=== PATIENT | female | born 1950 | race American Indian/Alaskan Native ===

== ENCOUNTER 2017-08-03 10:03 | Emergency (ER) | payer MEDICARE, OTHER ==
--- NOTE | 2017-08-03 10:59 | XRay Report ---
ROUTINE CHEST, TWO VIEWS: SOB. PA and lateral views demonstrate the heart and mediastinal contour to be of normal size and shape. The lungs are clear and fully expanded and the soft tissues and bony structures are normal. IMPRESSION: Normal study.
[2017-08-03 12:24] LABS: Basophils # (Auto) 0.1 K/mm3 (0.0-0.1); Basophils % (Auto) 1.1 % (0.0-1.8); Eosinophils # (Auto) 0.5 K/mm3 (0.0-0.4); Eosinophils % (Auto) 5.6 % (0.0-4.3); Hematocrit 38.3 % (30.3-42.9); Hemoglobin 12.7 gm/dl (10.1-14.3); Lymphocytes # (Auto) 2.3 K/mm3 (1.2-5.4); Lymphocytes % (Auto) 24.2 % (13.4-35.0); Mean Corpuscular HGB Conc 33 % (30-34); Mean Corpuscular Volume 76 fl (79-97); Monocytes # (Auto) 0.6 K/mm3 (0.0-0.8); Monocytes % (Auto) 6.6 % (0.0-7.3); Platelet Count 444 K/mm3 (140-440); Red Blood Count 5.02 M/mm3 (3.65-5.03); Red Cell Distribution Width 17.2 % (13.2-15.2)
[2017-08-03 12:27] LABS: Mean Corpuscular Hemoglobin 25 pg (28-32)
[2017-08-03 12:40] LABS: BUN/Creatinine Ratio 25; Blood Urea Nitrogen 15 mg/dL (7-17); Calcium 10.1 mg/dL (8.4-10.2); Hemolysis Index 16
--- NOTE | 2017-08-03 18:19 | Emergency Department Report ---
ED Shortness of Breath HPI - General Chief Complaint: Dyspnea/Respdistress Stated Complaint: DIFFICULTY BREATHING Time Seen by Provider: 08/03/17 15:40 Source: patient Mode of arrival: Ambulatory Limitations: Other - History of Present Illness Initial Comments: This is a 66-year-old female who has been hospitalized in the past for asthma exacerbations. She complains today of worsening shortness of breath. She states she has had these symptoms over the past several days but it acutely worsened yesterday. She has tried breathing treatments at home with no success. She also reports coughing and has nausea and has sharp chest pain to palpation. She states she feels short of breath with exertion. She admits to increased wheezing. Denies fever. She was admitted in December 2016 for similar symptoms. MD Complaint: shortness of breath -: Gradual Radiation: back Severity: moderate Quality: aching Consistency: constant Improves With: nothing Worsens With: exertion, movement Known History Of: asthma Associated Symptoms: chest pain (sharp, middle of chest) Treatments Prior to Arrival: oxygen, bronchodilator - Related Data Home Oxygen Therapy: No Home Medications Medication Instructions Recorded Confirmed Last Taken Albuterol Sulfate [Ventolin HFA] 2 puff IH Q4H PRN 01/06/16 01/01/17 1 Day Ago ~12/31/16 Fluticasone [Flonase] 1 spray NS QDAY 01/06/16 01/01/17 1 Day Ago ~12/31/16 Pregabalin [Lyrica] 75 mg PO QDAY 01/06/16 01/01/17 1 Day Ago ~12/31/16 Previous Rx's Medication Instructions Recorded Last Taken Type Calcium Citrate/Vit D 315-250 1 each PO BID #60 tablet 06/21/16 1 Day Ago Rx [Citracal D 315Mg-250 Units] ~12/31/16 Aspirin 81 mg PO Q24H #30 tab.chew 01/05/17 Unknown Rx Calcitriol [Rocaltrol] 1 mcg PO DAILY #30 capsule 01/05/17 Unknown Rx HYDROcodone/APAP 5-325 [[place] 1 each PO Q6H PRN #12 tablet 01/05/17 Unknown Rx 5-325 mg TAB] Levothyroxine [Synthroid] 100 mcg PO QAM #30 tablet 01/05/17 Unknown Rx Losartan/Hydrochlorothiazide 1 each PO DAILY #30 tablet 01/05/17 Unknown Rx [Losartan-Hctz 50-12.5 mg Tab] Simvastatin [Zocor TAB] 20 mg PO QHS #30 tablet 01/05/17 Unknown Rx Allergies Allergy/AdvReac Type Severity Reaction Status Date / Time aspirin Allergy Anaphylaxis Verified 01/05/16 19:13 ED Review of Systems ROS: Stated complaint: DIFFICULTY BREATHING Other details as noted in HPI Comment: All other systems reviewed and negative Constitutional: see HPI Eyes: as per HPI ENT: as per HPI Respiratory: see HPI Cardiovascular: as per HPI Endocrine: see HPI Gastrointestinal: as per HPI Genitourinary: as per HPI Musculoskeletal: as per HPI Skin: as per HPI Neurological: as per HPI Psychiatric: as per HPI Hematological/Lymphatic: as per HPI ED Past Medical Hx - Past Medical History Hx Hypertension: Yes Hx Congestive Heart Failure: No Hx Diabetes: No Hx Asthma: Yes Hx COPD: No Hx HIV: No Additional medical history: fibroid malagia. Obesity - Surgical History Additional Surgical History: thyroidectomy. hysterectomy. jessica ankle sx - Social History Smoking Status: Never Smoker Substance Use Type: None - Medications Home Medications: Home Medications Medication Instructions Recorded Confirmed Last Taken Type Albuterol Sulfate [Ventolin HFA] 2 puff IH Q4H PRN 01/06/16 01/01/17 1 Day Ago History ~12/31/16 Fluticasone [Flonase] 1 spray NS QDAY 01/06/16 01/01/17 1 Day Ago History ~12/31/16 Pregabalin [Lyrica] 75 mg PO QDAY 01/06/16 01/01/17 1 Day Ago History ~12/31/16 Calcium Citrate/Vit D 315-250 1 each PO BID #60 tablet 06/21/16 01/01/17 1 Day Ago Rx [Citracal D 315Mg-250 Units] ~12/31/16 Aspirin 81 mg PO Q24H #30 tab.chew 01/05/17 Unknown Rx Calcitriol [Rocaltrol] 1 mcg PO DAILY #30 capsule 01/05/17 Unknown Rx HYDROcodone/APAP 5-325 [[place] 1 each PO Q6H PRN #12 tablet 01/05/17 Unknown Rx 5-325 mg TAB] Levothyroxine [Synthroid] 100 mcg PO QAM #30 tablet 01/05/17 Unknown Rx Losartan/Hydrochlorothiazide 1 each PO DAILY #30 tablet 01/05/17 Unknown Rx [Losartan-Hctz 50-12.5 mg Tab] Simvastatin [Zocor TAB] 20 mg PO QHS #30 tablet 01/05/17 Unknown Rx ED Physical Exam - General Limitations: Other General appearance: alert, in no apparent distress - Head Head exam: Present: atraumatic - Eye Eye exam: Present: normal appearance, PERRL, EOMI - ENT ENT exam: Present: normal exam, normal orophraynx - Neck Neck exam: Present: normal inspection. Absent: tenderness, meningismus - Respiratory Respiratory exam: Present: wheezes, decreased breath sounds - Cardiovascular Cardiovascular Exam: Present: regular rate, normal rhythm, normal heart sounds - GI/Abdominal GI/Abdominal exam: Present: soft, normal bowel sounds. Absent: distended, tenderness, guarding, rebound - Extremities Exam Extremities exam: Present: normal inspection, full ROM - Back Exam Back exam: Present: normal inspection, full ROM - Neurological Exam Neurological exam: Present: alert, oriented X3, CN II-XII intact - Psychiatric Psychiatric exam: Present: normal affect, normal mood - Skin Skin exam: Present: warm, dry, intact, normal color ED Course Vital Signs 08/03/17 08/03/17 08/03/17 10:15 16:09 16:16 Temperature 97.8 F Pulse Rate 102 H 87 81 Respiratory 18 14 18 Rate Blood Pressure 148/82 131/69 Blood Pressure [Right] O2 Sat by Pulse 98 98 Oximetry 08/03/17 08/03/17 08/03/17 16:18 16:30 16:45 Temperature 97.6 F Pulse Rate 77 95 H 78 Respiratory 21 19 20 Rate Blood Pressure 131/69 138/72 Blood Pressure 136/64 [Right] O2 Sat by Pulse 99 99 96 Oximetry 08/03/17 08/03/17 08/03/17 17:00 17:15 17:30 Temperature Pulse Rate 81 84 85 Respiratory 12 25 H 12 Rate Blood Pressure 151/72 168/77 155/78 Blood Pressure [Right] O2 Sat by Pulse 99 98 98 Oximetry 08/03/17 08/03/17 08/03/17 18:00 18:16 19:18 Temperature Pulse Rate 92 H Respiratory Rate Blood Pressure 155/78 155/78 155/78 Blood Pressure [Right] O2 Sat by Pulse 96 97 99 Oximetry - Reevaluation(s) Reevaluation #1: 08/03/17 19:36 Discussed with [facility]. They will transfer to [place]. ED Medical Decision Making - Lab Data Result diagrams: 08/03/17 11:59 08/03/17 11:59 Critical care attestation.: If time is entered above; I have spent that time in minutes in the direct care of this critically ill patient, excluding procedure time. ED Disposition Clinical Impression: Asthma exacerbation Qualifiers: Asthma severity: mild Asthma persistence: intermittent Qualified Code(s): J45.21 - Mild intermittent asthma with (acute) exacerbation Disposition: [id number]/TX-[id number] ANOTHER TYPE HLTHCARE Is pt being admited?: No Does the pt Need Aspirin: No Condition: Stable Referrals: PRIMARY CARE, [Primary Care Provider] - 3-5 Days
[2017-08-03] MEDS ORDERED: DUONEB *Not for PRN Use IH ONE (18:23)
[2017-08-03] MEDS ORDERED: PROVENTIL IH ONE (19:37)
[2017-08-03] MEDS ORDERED: TORADOL IV ONE (19:50)
[2017-08-03 20:48] VITALS: BP 147/71
== END 2017-08-03 21:28 | disposition other institution (70) ==
LOC: ED 10:03
DX: J45.21 Mild intermittent asthma with (acute) exacerbation (principal); I10 Essential (primary) hypertension; Z90.710 Acquired absence of both cervix and uterus; Z88.6 Allergy status to analgesic agent
CPT/HCPCS: 36415; 71046; 80048; 85025; 93005; 93010; 94640; 96374; 96375; 99285; J1885; J2930